=== PATIENT | male | born 1995 | race Caucasian/White ===

== ENCOUNTER 2017-07-08 02:03 | Emergency (ER) | payer OTHER ==
[~2017-07-08] VITALS: Ht 182.9 cm; Wt 80.0 kg
[2017-07-08] MEDS ORDERED: SODIUM CHLORIDE 0.9% 1,000ML IVBOLUS ONE (02:30)
[2017-07-08] MEDS ORDERED: ONDANSETRON 2MG/ML, 2ML IVPush ONE (02:30)
[2017-07-08] MEDS ORDERED: SODIUM CHLORIDE FLUSH 10ML SYR IVF ONE (02:30)
[2017-07-08 03:11] LABS: BLOOD UREA NITROGEN 14 mg/dL (7-18)
[2017-07-08 06:35] VITALS: BP 129/75
== END 2017-07-08 06:47 | disposition home or self-care (01) ==
LOC: ED 06:40
DX: F10.120 Alcohol abuse with intoxication, uncomplicated (principal)
CPT/HCPCS: 36415; 80048; 80307; 82040; 96374; 99284; J2405; J7030; G0479